=== PATIENT | male | born 1990 | race Caucasian/White ===

== ENCOUNTER 2018-06-07 14:32 | Emergency (ER) | payer OTHER ==
[~2018-06-07] VITALS: Ht 177.8 cm; Wt 129.3 kg
[2018-06-07] MEDS ORDERED: PROMETH-CODEIN 65 ML PO (16:06)
[2018-06-07] MEDS ORDERED: OSELB75 PO (16:06)
[2018-06-07 18:11] VITALS: BP 166/56
== END 2018-06-07 16:41 | disposition home or self-care (01) ==
LOC: ER 14:32
DX: J10.1 Influenza due to other identified influenza virus with other respiratory manifestations (principal)